=== PATIENT | female | born 2005 | race Caucasian/White ===

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

== ENCOUNTER 2023-06-08 00:36 | Emergency (ER) | payer OTHER ==
[~2023-06-08] VITALS: Ht 170.2 cm; Wt 44.9 kg
[2023-06-08 01:58] LABS: BASOPHILS ABSOLUTE AUTO 0.06 K/mm3 (0.00-0.23); BASOPHILS PERCENT AUTO 0 % (0-2); EOSINOPHILS ABSOLUTE AUTO 0.26 K/mm3 (0.00-0.68); EOSINOPHILS PERCENT AUTO 2 % (0-6); Hemoglobin 12.8 g/dL (11.5-16.0); IMMATURE GRAN ABSOLUTE AUTO 0.05 K/mm3 (0.00-0.10); IMMATURE GRAN PERCENT AUTO 0 % (0-1); LYMPHOCYTES ABSOLUTE AUTO 3.58 K/mm3 (0.84-5.20); LYMPHOCYTES PERCENT AUTO 26 % (21-46); MONOCYTES ABSOLUTE AUTO 1.01 K/mm3 (0.16-1.47); MONOCYTES PERCENT AUTO 7 % (4-13); Mean Corpuscular HGB 28.3 pg (26.0-34.0); Mean Corpuscular Volume 88 fL (80-100); Mean Platelet Volume 10.2 fL (9.1-12.4); NEUTROPHILS ABSOLUTE AUTO 9.03 K/mm3 (1.96-9.15); NEUTROPHILS PERCENT AUTO 65 % (41-73); Platelet Count 289 K/mm3 (150-400); RDW Coefficient Variation 13.2 % (11.7-14.2); RDW Standard Deviation 42.6 fL (35.1-46.3); Red Blood Cell Count 4.53 M/mm3 (3.80-5.20); White Blood Cell Count 13.99 K/mm3 (4.00-11.30)
[2023-06-08 02:17] LABS: Albumin, Blood 3.6 g/dL (3.4-5.0); Bilirubin, Total 0.3 mg/dL (0.1-1.0); Bun/Creatinine Ratio 10.1 (12.0-20.0); Calcium, Blood 9.1 mg/dL (8.5-10.1); Creatinine, Blood 0.79 mg/dL (0.40-1.00); Globulin, Blood 3.5 g/dL (2.2-4.0); Potassium, Blood 3.9 mmol/L (3.5-5.5); Total Protein, Blood 7.1 g/dL (6.4-8.2)
[2023-06-08 03:14] LABS: U Amphetamine Screen Not Detected; U Barbituate Screen Not Detected; U Benzodiazapine Screen Not Detected; U Buprenorphine Screen Not Detected; U Cannabinoids Screen DETECTED; U Cocaine Screen Not Detected; U Methadone Screen Not Detected; U Methamphetamine Screen Not Detected; U Opiates Screen Not Detected; U Oxycodone Screen Not Detected; U Phencyclidine Screen Not Detected; U Propoxyphene Screen Not Detected
[2023-06-08 04:57] VITALS: BP 124/85
== END 2023-06-08 04:55 | disposition home or self-care (01) ==
LOC: ER 00:36
PROVIDERS: Emergency Medicine
DX: R07.2 Precordial pain (principal)
CPT/HCPCS: 71046; 80053; 84484; 85025; 85730; 93005; 93010; 99283-25

== ENCOUNTER 2023-08-04 10:13 | Emergency (ER) | payer OTHER ==
[~2023-08-04] VITALS: Ht 170.2 cm; Wt 46.3 kg
[2023-08-04 10:40] VITALS: BP 118/78
== END 2023-08-04 12:20 | disposition home or self-care (01) ==
LOC: ER 10:13
DX: S93.601A Unspecified sprain of right foot, initial encounter (principal); F90.9 Attention-deficit hyperactivity disorder, unspecified type; Z88.5 Allergy status to narcotic agent; Z88.6 Allergy status to analgesic agent; W18.49XA Other slipping, tripping and stumbling without falling, initial encounter; Y92.002 Bathroom of unspecified non-institutional (private) residence as the place of occurrence of the external cause; Y93.89 Activity, other specified
CPT/HCPCS: 73630; 99283-25; A9270